=== PATIENT | female | born 1960 | race Caucasian/White ===

== ENCOUNTER 2022-12-03 11:22 | Emergency (ER) | payer BC ==
[2022-12-03] MEDS ORDERED: Sodium Chloride 0.9% 1,000 ML IV ONE (11:57)
[2022-12-03] MEDS ORDERED: Ondansetron 4 MG/2 ML SDV IVPUSH ONE (11:57)
[2022-12-03] MEDS ORDERED: Meclizine 25 MG Tab PO ONE (11:58)
[2022-12-03] MEDS: Sodium Chloride 0.9% 10 ML Syringe FLUSH PRN ×2 (12:51→17:08)
[2022-12-03 13:06] LABS: ANION GAP 9.3 meq/L (7-15); CHLORIDE,CL 104 mmol/L (98-107); SODIUM,NA 142 mmol/L (136-145)
[2022-12-03 13:10] LABS: ESTIMATED GFR 94 mL/min (>=60)
[2022-12-03] MEDS ORDERED: Magnesium Sulfate/Water 2 GM in Premix Bag 1 BAG IV ONE (13:46)
== END 2022-12-03 17:11 | disposition home or self-care (01) ==
LOC: LL.ED 11:22
DX: R10.9 Unspecified abdominal pain (principal); R10.814 Left lower quadrant abdominal tenderness; E83.42 Hypomagnesemia; I10 Essential (primary) hypertension
CPT/HCPCS: 36415; 74019; 80053; 81003; 83735; 84443; 85025; 96361; 96365; 96366; 96375; 99284; 99284-25; A9270-GY; J2405; J3475; J3490; J7030